=== PATIENT | male | born 1975 | race Caucasian/White ===

== ENCOUNTER 2018-07-14 19:28 | Emergency (ER) | payer OTHER ==
[~2018-07-14] VITALS: Ht 170.2 cm; Wt 86.4 kg
[2018-07-14 21:27] LABS: HEMATOCRIT 46.5 % (39.0-50.0); HEMOGLOBIN 16.6 g/dl (14.0-18.0); IMMATURE GRANULOCYTES 0.8 % (0.0-5.0); MEAN CELL VOLUME 89.4 fL CALC (80.0-100.0); MEAN CORPUSCULAR HGB 31.9 pG CALC (26.0-32.0); MEAN CORPUSCULAR HGB CONC 35.7 g/L CALC (32.0-36.0); NEUT# 9.64 thou/uL (1.82-7.42); RED BLOOD COUNT 5.2 mill/uL (4.70-6.10); RED CELL DISTRI WIDTH 12.5 % (11.5-15.5)
[2018-07-14 21:39] LABS: ANION GAP 14 (6-22 (CALC)); BUN 9 mg/dL (9-20); BUN/CREATININE RATIO 11 (12-20 (CALC)); CARBON DIOXIDE 24 mmol/l (22-30); CHLORIDE 106 mmol/l (95-108); CREATININE 0.8 mg/dL (0.7-1.3); GFR > 60 ML/MIN (>=60 (CALC)); GFR FOR AFR.AMER. > 60 ML/MIN (>=60 (CALC)); POTASSIUM 3.9 mmol/l (3.5-5.1); SODIUM 140 mmol/l (137-146)
[2018-07-14] MEDS ORDERED: AMOXICILLIN/PO500 MG PO (23:28)
[2018-07-14] MEDS ORDERED: BENADRYL 50MG C50 MG PO (23:28)
[2018-07-14] MEDS ORDERED: MEDDOSEPAK PO (23:28)
[2018-07-14 23:29] VITALS: BP 122/71
[2018-07-14] MEDS ORDERED: LORTAB 1010 MG PO (23:30)
== END 2018-07-14 23:29 | disposition home or self-care (01) | DRG 607 ==
LOC: ED 19:28
PROVIDERS: Emergency Medicine
DX: S10.96XA Insect bite of unspecified part of neck, initial encounter (principal); R22.1 Localized swelling, mass and lump, neck; H92.01 Otalgia, right ear; W57.XXXA Bitten or stung by nonvenomous insect and other nonvenomous arthropods, initial encounter
CPT/HCPCS: Q9967